=== PATIENT | male | born 1960 | race Caucasian/White ===

== ENCOUNTER 2023-06-25 09:18 | Inpatient (IN) | payer BC ==
[~2023-06-25] VITALS: Ht 182.9 cm; Wt 94.9 kg
[~2023-06-25 09:18] MED LIST: ATOR20TA PO; LISI10TA27 PO; NOR5T PO
[2023-06-25 09:54] LABS: BASOPHILS % (AUTO) 0.7 % (0-1); EOSINOPHILS # (AUTO) 0.1 X10'3 (0-0.9); EOSINOPHILS % (AUTO) 1.4 % (0-6); HEMATOCRIT 45.3 % (42.0-52.0); HEMOGLOBIN 15.2 g/dl (14.0-17.9); LYMPHOCYTES # (AUTO) 1.2 X10'3 (1.1-4.8); LYMPHOCYTES % (AUTO) 19.5 % (21-51); MEAN CORPUSCULAR HEMOGLOBIN 28.9 PG (27.0-31.0); MEAN CORPUSCULAR HGB CONC 33.7 g/dL (33.0-36.5); MEAN CORPUSCULAR VOLUME 85.8 FL (78-98); MEAN PLATELET VOLUME 7.2 FL (7.4-10.4); MONOCYTES # (AUTO) 0.6 X10'3 (0-0.9); NEUTROPHILS # (AUTO) 4.2 X10'3 (1.8-7.7); NEUTROPHILS % (AUTO) 68.4 % (42-75); PLATELET COUNT 234 X10'3 (140-440); RED BLOOD COUNT 5.27 X10'6 (4.70-6.10); RED CELL DISTRIBUTION WIDTH 14.2 % (11.5-14.5); WHITE BLOOD COUNT 6.1 X10'3 (4.5-11.0)
[2023-06-25 10:11] LABS: APTT 29 SECONDS (22-32); PROTHROMBIN TIME 10.3 SECONDS (9.0-12.0)
[2023-06-25 10:13] LABS: ALBUMIN 4.1 G/DL (3.4-5.0); BLOOD UREA NITROGEN 12 MG/DL (7-18); BUN/CREATININE RATIO 11.1 (10.0-20.0); CALCIUM 9.3 MG/DL (8.5-10.1); CREATININE 1.08 MG/DL (0.60-1.10); GLUCOSE 109 MG/DL (70-104); MAGNESIUM 2.1 MG/DL (1.5-2.4); PRO BRAIN NATRIURETIC PEPTIDE 208 PG/ML (0-125); SODIUM 140 MMOL/L (135-145); TOTAL CARBON DIOXIDE 28.8 MMOL/L (24-32); eCRCL 80 ML/MIN; eGFR 70 ML/MIN
[2023-06-25 10:17] LABS: ANION GAP 8 (8-16); CHLORIDE 103 MMOL/L (99-107)
[2023-06-25] MEDS: nitroGLYCERIN 0.4mg/hour patch TD ONE (10:47)
[2023-06-25] MEDS: aspirin 81mg tab.chew PO ONE (12:00)
[2023-06-25] MEDS ORDERED: morphine 2 MG/ML inj. syringe IV PRN ×2 (13:35)
[2023-06-25] MEDS ORDERED: mag hydrox/Alum hydrox/simeth 30ml oral suspension PO PRN (13:35)
[2023-06-25] MEDS ORDERED: acetaminophen 325mg tablet PO PRN ×2 (13:35)
[2023-06-25] MEDS ORDERED: HYDROcodone/acetaminophen 10/325mg tab PO PRN (13:35)
[2023-06-25] MEDS ORDERED: potassium Cl 40MEQ/1/2NS 520ml 520 ML IV PRN (13:35)
[2023-06-25] MEDS ORDERED: magnesium hydroxide 30ml (MOM) UD suspension PO PRN (13:35)
[2023-06-25] MEDS ORDERED: potassium Cl 20 mEq SR tablet PO PRN ×2 (13:35)
[2023-06-25] MEDS ORDERED: HYDROcodone/acetaminophen 5mg/325mg tablet PO PRN (13:35)
[2023-06-25] MEDS ORDERED: magnesium 4gm in 100ml NS 100 ML IV PRN (13:35)
[2023-06-25] MEDS ORDERED: ondansetron/PF 4mg/2ml inj IV PRN (13:35)
[2023-06-25] MEDS ORDERED: magnesium 2GM in 50ml NS 50 ML IV PRN (13:35)
[2023-06-25] MEDS ORDERED: magnesium Cl slow-release 64mg tablet PO PRN (13:35)
[2023-06-25] MEDS: atorvastatin 20mg tablet PO SCH (13:55)
[2023-06-25 14:17] LABS: HEMOGLOBIN A1C 5.9 % (4.5-6.2)
[2023-06-25] MEDS ORDERED: iohexol 350MG/ML 100ml bottle IV ONE (15:21)
[2023-06-25] MEDS: clopidogrel 300mg tablet PO ONE (15:49)
[2023-06-25 17:56] LABS: ALANINE AMINOTRANSFERASE 32 U/L (12-78); ALBUMIN 3.6 G/DL (3.4-5.0); ALKALINE PHOSPHATASE 98 IU/L (46-116); ANION GAP 12 (8-16); ASPARTATE AMINO TRANSFERASE 19 U/L (10-37); BILIRUBIN,TOTAL 1.4 MG/DL (0.1-1.0); BLOOD UREA NITROGEN 12 MG/DL (7-18); BUN/CREATININE RATIO 12.6 (10.0-20.0); CALCIUM 8.8 MG/DL (8.5-10.1); CHLORIDE 102 MMOL/L (99-107); CHOL/HDL RATIO 3.7 (0.00-4.99); CHOLESTEROL 173 MG/DL (0-200); CREATININE 0.95 MG/DL (0.60-1.10); GLUCOSE 90 MG/DL (70-104); HDL CHOLESTEROL 47 MG/DL (35-60); LDL CHOLESTEROL 100 MG/DL (50-100); POTASSIUM 3.7 MMOL/L (3.5-5.1); SODIUM 138 MMOL/L (135-145); TOTAL CARBON DIOXIDE 24.3 MMOL/L (24-32); TOTAL PROTEIN 7.1 G/DL (6.4-8.2); TRIGLYCERIDES 99 MG/DL (20-135); eCRCL 91 ML/MIN; eGFR 81 ML/MIN
[2023-06-25] MEDS: K and/or MAG REPLACEMENT MC SCH (20:00)
[2023-06-25] MEDS: docusate sod 100mg capsule PO SCH (20:00)
[2023-06-25] MEDS: heparin, porcine 5000 units/ml vial SQ SCH (20:41)
[2023-06-25 22:00] VITALS: BP 148/68; PULSE 79; RESP 18; TEMP 98.1; O2SAT 99
[2023-06-26 02:00] VITALS: BP 135/78; PULSE 86; RESP 20; TEMP 98.3; O2SAT 100
[2023-06-26 06:00] VITALS: BP 101/61; PULSE 77; RESP 20; TEMP 97.8; O2SAT 95
[2023-06-26 06:41] LABS: BASOPHILS % (AUTO) 0.5 % (0-1); EOSINOPHILS # (AUTO) 0.1 X10'3 (0-0.9); EOSINOPHILS % (AUTO) 1.2 % (0-6); HEMATOCRIT 42.4 % (42.0-52.0); HEMOGLOBIN 14.2 g/dl (14.0-17.9); LYMPHOCYTES # (AUTO) 0.8 X10'3 (1.1-4.8); MEAN CORPUSCULAR HEMOGLOBIN 28.9 PG (27.0-31.0); MEAN CORPUSCULAR HGB CONC 33.6 g/dL (33.0-36.5); MEAN CORPUSCULAR VOLUME 85.9 FL (78-98); MEAN PLATELET VOLUME 7.4 FL (7.4-10.4); MONOCYTES # (AUTO) 0.8 X10'3 (0-0.9); MONOCYTES % (AUTO) 10.2 % (2-12); NEUTROPHILS # (AUTO) 5.9 X10'3 (1.8-7.7); NEUTROPHILS % (AUTO) 77.1 % (42-75); PLATELET COUNT 214 X10'3 (140-440); RED BLOOD COUNT 4.93 X10'6 (4.70-6.10); RED CELL DISTRIBUTION WIDTH 14.1 % (11.5-14.5); WHITE BLOOD COUNT 7.6 X10'3 (4.5-11.0)
[2023-06-26 06:58] LABS: APTT 28 SECONDS (22-32); PROTHROMBIN TIME 10.3 SECONDS (9.0-12.0)
[2023-06-26 07:19] LABS: ALANINE AMINOTRANSFERASE 34 U/L (12-78); ALBUMIN 3.6 G/DL (3.4-5.0); ALKALINE PHOSPHATASE 97 IU/L (46-116); ANION GAP 11 (8-16); ASPARTATE AMINO TRANSFERASE 18 U/L (10-37); BILIRUBIN,TOTAL 1.9 MG/DL (0.1-1.0); BLOOD UREA NITROGEN 14 MG/DL (7-18); BUN/CREATININE RATIO 13.2 (10.0-20.0); CHLORIDE 103 MMOL/L (99-107); CREATININE 1.06 MG/DL (0.60-1.10); FREE T4 (FREE THYROXINE) 1.15 NG/DL (0.73-1.40); GLUCOSE 89 MG/DL (70-104); MAGNESIUM 2.1 MG/DL (1.5-2.4); PHOSPHORUS 3.2 MG/DL (2.3-4.5); POTASSIUM 4.2 MMOL/L (3.5-5.1); SODIUM 139 MMOL/L (135-145); THYROID STIMULATING HORMONE 0.73 ulU/ml (0.34-4.50); TOTAL CARBON DIOXIDE 25.4 MMOL/L (24-32); TOTAL PROTEIN 7.2 G/DL (6.4-8.2); eCRCL 81 ML/MIN; eGFR 71 ML/MIN
[2023-06-26 08:00] VITALS: RESP 16; O2SAT 95
[2023-06-26] MEDS: aspirin 81mg, enteric-coated 1 TAB TABLET.DR PO SCH (08:09)
[2023-06-26] MEDS: pantoprazole 40mg Tablet.DR PO SCH (08:09)
[2023-06-26] MEDS: clopidogrel 75mg tablet PO SCH (08:09)
[2023-06-26] MEDS ORDERED: PERFLUTREN PROTEIN-A MICROSPHR (Optison) 0.22 MG/ML 3ML VIAL IV ONE ×2 (12:40→12:50)
[2023-06-26] MEDS: atorvastatin 20mg tablet PO SCH (14:07)
[2023-06-26 14:38] VITALS: RESP 16
[2023-06-26] MEDS ORDERED: CLOP75TA34 PO (16:55)
[2023-06-26] MEDS ORDERED: ATOR20TA PO (16:55)
[2023-06-26] MEDS ORDERED: ASPI-1071 PO (16:55)
== END 2023-06-26 17:50 | disposition home or self-care (01) | DRG 64 ==
LOC: ER 09:19 → ED HOLD 13:34 → PCU 3S 21:10
PROVIDERS: ADMIT Internal Medicine; ATTEND Internal Medicine
PROC: B3251ZZ Computerized Tomography (CT Scan) of Bilateral Common Carotid Arteries using Low Osmolar Contrast (ICD-10-PCS; principal; 2023-06-25)
PROC: B32G1ZZ Computerized Tomography (CT Scan) of Bilateral Vertebral Arteries using Low Osmolar Contrast (ICD-10-PCS; 2023-06-25)
PROC: B32R1ZZ Computerized Tomography (CT Scan) of Intracranial Arteries using Low Osmolar Contrast (ICD-10-PCS; 2023-06-25)
PROC: B3281ZZ Computerized Tomography (CT Scan) of Bilateral Internal Carotid Arteries using Low Osmolar Contrast (ICD-10-PCS; 2023-06-25)
DX: I63.89 Other cerebral infarction (principal); I21.A1 Myocardial infarction type 2; I16.1 Hypertensive emergency; E78.00 Pure hypercholesterolemia, unspecified; I10 Essential (primary) hypertension; K21.9 Gastro-esophageal reflux disease without esophagitis; Z87.891 Personal history of nicotine dependence; Z79.899 Other long term (current) drug therapy
CPT/HCPCS: 36415; 70450; 70496; 70498; 70551; 71045; 80048; 80053; 80061; 83036; 83735; 83880; 84100; 84439; 84443; 84484; 85025; 85610; 85730; 87081; 93005; 93306; 93308; 97110; 97161; 99285; G0378; J1644; J3490; Q9967